=== PATIENT | female | born 1980 | race Caucasian/White ===

== ENCOUNTER → 2023-06-20 | Outpatient (CLI) | payer BC, SELFPAY ==
[2023-06-20 10:32] LABS: Luteinizing Hormone 1.9 mIU/mL; Prolactin 11.6 ng/mL
[2023-06-23 08:11] LABS: Adrenocorticotropic Hormone 10.4 pg/mL (7.2-63.3); Growth Hormone 0.2 ng/mL (0.0-10.0); Insulin Like Growth Factor 177 ng/mL (74-239)
== END | disposition home or self-care (01) ==
PROVIDERS: Referring Provider Family Medicine; Visit Provider Family Medicine
DX: E34.9 Endocrine disorder, unspecified (principal)
CPT/HCPCS: 36415; 82024; 82533; 83002; 83003; 84146; 84305